=== PATIENT | female | born 1990 | race American Indian/Alaskan Native ===

== ENCOUNTER 2016-11-08 16:27 | Emergency (ER) | payer SELFPAY ==
[2016-11-08 16:36] VITALS: BP 119/87
[2016-11-08] MEDS ORDERED: MOTRIN PO ONE (17:25)
[2016-11-08] MEDS ORDERED: MAGIC MOUTHWASH PO ONE (17:27)
[2016-11-08] MEDS ORDERED: BICILLIN L-A IM ONE ×6 (17:27→18:47)
[2016-11-08] MEDS ORDERED: DELTASONE PO ONE (17:27)
--- NOTE | 2016-11-08 17:46 | Emergency Department Report ---
HPI - General Chief Complaint: Sore Throat Time Seen by Provider: 11/08/16 16:59 - HPI HPI: Patient is a 26-year-old female who presents to ED with complaining of throat pain 2 days. Patient describes pain as throbbing in nature, 8 out of 10 intensity, nonradiating, localized to her throat. Admits pain with swallowing and eating. Patient admits no appetite due to throat pain. Patient admits generalized body aches. Patient admits fever for yesterday but is unsure at the moment. Patient denies nausea/vomiting/abdominal pain/shortness of breath/chest pain/ headache. ED Past Medical Hx - Past Medical History Previous Medical History?: No - Surgical History Past Surgical History?: No - Social History Smoking Status: Never Smoker Substance Use Type: Alcohol, Non Opiate Pain - Medications Home Medications: Home Medications Medication Instructions Recorded Confirmed Last Taken Type Ibuprofen [Motrin] 600 mg PO Q8H PRN #24 tablet 11/08/16 Unknown Rx ED Review of Systems ROS: Stated complaint: SORE THROAT/BODY PAIN Other details as noted in HPI Constitutional: denies: chills, fever Eyes: denies: eye pain, eye discharge, vision change ENT: throat pain. denies: ear pain Respiratory: denies: cough, shortness of breath, wheezing Cardiovascular: denies: chest pain, palpitations Endocrine: no symptoms reported Gastrointestinal: denies: abdominal pain, nausea, diarrhea Genitourinary: denies: urgency, dysuria, discharge Musculoskeletal: denies: back pain, joint swelling, arthralgia Skin: denies: rash, lesions Neurological: denies: headache, weakness, paresthesias Psychiatric: denies: anxiety, depression Hematological/Lymphatic: denies: easy bleeding, easy bruising Physical Exam - Physical Exam Vital Signs: Vital Signs 11/08/16 16:33 Temperature 99.4 F Pulse Rate 120 H Respiratory 20 Rate Blood Pressure 119/87 O2 Sat by Pulse 100 Oximetry Physical Exam: GENERAL: Alert and oriented x3, no apparent distress, Normal Gait, atraumatic. HEAD: Head is normocephalic and a-traumatic. EYES: Extra ocular muscles are intact. Pupils are equal, round, and reactive to light and accommodation. EARS: symetrical, atraumatic, non tender, ear canal clear and moderate cerumen, tympanic membrance non inflamed. gross auditory nml bilaterally. NOSE: Nose symetrical, Nontender,Nares appeared normal. MOUTH:Mouth is well hydrated and without lesions. Tonsils nonerythematous but moderately swollen, Uvula midline, Tongue slightly elevated. Mucous membranes are moist. Posterior pharynx clear, no exudate or lesions. Patent airways. NECK: Supple. Non edematous, No carotid bruits. No lymphadenopathy or thyromegaly. LUNGS: Symetrical with respiration, No wheezing, no rales or crackles, CTAB. HEART: S1, S2 present, regular rate and rhythm without murmur, no rubs, no gallops. ABDOMEN: No organomegaly was noted,Positive bowel sounds, soft, and non- distended. SKIN: Warm and dry, No lesions, No ulceration or induration present. ED Course Vital Signs 11/08/16 16:33 Temperature 99.4 F Pulse Rate 120 H Respiratory 20 Rate Blood Pressure 119/87 O2 Sat by Pulse 100 Oximetry ED Medical Decision Making - Medical Decision Making 26-year-old female presents with strep pharyngitis. ED course: Rapid strep tests ordered rapid strep test positive Patient received 1 dose of ibuprofen, 1.2 million units of penicillin, 60 mg of prednisone and Magic mouthwash. Fever responsive to one dose of Tylenol. Vital signs stable patient is in no acute respiratory distress. Discussed findings with patient about the positive strep. Discussed treatment in ED with patient Discussed the patient that strep throat is contagious and to limit sharing spoons and such. Patient to be sent home on Motrin Discussed with patient follow-up with primary care physician. Patient verbally states he understands and will comply to follow-up. Critical care attestation.: If time is entered above; I have spent that time in minutes in the direct care of this critically ill patient, excluding procedure time. ED Disposition Clinical Impression: Strep pharyngitis, Tonsillitis Disposition: DISCHARGED TO HOME OR SELFCARE Is pt being admited?: No Does the pt Need Aspirin: No Condition: Stable Instructions: Tonsillitis (ED), Strep Throat (ED) Prescriptions: Ibuprofen [Motrin] 600 mg PO Q8H PRN #24 tablet PRN Reason: Pain Referrals: PRIMARY CARE, [Primary Care Provider] - 3-5 Days SAMUEL TENORIO MD [Referring] - 3-5 Days NORA MONTERROSO MD [Referring] - 3-5 Days NISHA HO MD [Staff Physician] - 3-5 Days [facility] [Outside] - 3-5 Days Forms: Work/School Release Form(ED) Time of Disposition: 18:16
== END 2016-11-08 19:06 | disposition home or self-care (01) ==
LOC: ED 16:27
DX: J02.0 Streptococcal pharyngitis (principal); J03.90 Acute tonsillitis, unspecified
CPT/HCPCS: 87430; 96372; 99282; J0561; J7512